=== PATIENT | male | born 1940 | race Caucasian/White ===

== ENCOUNTER 2017-12-02 17:38 | Emergency (ER) | payer OTHER ==
[~2017-12-02] VITALS: Ht 170.2 cm; Wt 95.0 kg
[~2017-12-02 17:38] MED LIST: ADVAIR HFA120 INHALA IH; ASPIRIN325 MG PO; CLEOCIN150 MG PO; DAILY VALUE1 EACH PO; HYDROCHLOROT TAB 12. PO; ICAPS MULTIV1 TABLET PO; LISINOPRIL40 MG PO; METOPROLOL SUCC25 MG PO; MUCINEX600 MG PO; PROAIR HFA8.5 GM IH; SIMVASTATIN80 MG PO; VITAMIN D2000 INTUN PO; ZETIA10 MG PO
[2017-12-02 18:26] LABS: HEMATOCRIT 44.2 % (38.0-50.0); HEMOGLOBIN 15.3 G/DL (12.5-16.6); MCH 31.1 PG (29.0-34.0); MCHC 34.6 G/DL (30.0-36.0); MCV 89.8 FL (86-99); PLATELET COUNT 203 K/uL (156-360); RBC DIS.WIDTH-CV 13.5 % (11.8-14.6); RBC DIS.WIDTH-SD 44.6 % (39-53); RED BLOOD COUNT 4.92 M/uL (4.00-5.50); WHITE BLOOD COUNT 7.7 K/uL (4.1-10.2)
[2017-12-02 18:39] LABS: CHLORIDE 102 mEq/L (99-109); POTASSIUM 4.8 mEq/L (3.7-5.4); SODIUM 138 mEq/L (136-147)
[2017-12-02 18:41] LABS: GLUCOSE 118 mg/dL (70-99)
[2017-12-02 18:45] LABS: CREATININE 1.5 mg/dL (0.6-1.3); GFR ESTIMATE (CALCULATED) 48 mL/min/ (58.99-99999)
[2017-12-02 18:46] LABS: UREA NITROGEN (BUN) 29 mg/dL (9-23)
[2017-12-02 18:49] LABS: TROP-I INTERPRETATION NEGATIVE; TROPONIN-I 0.01 ng/mL (0.0-0.30)
[2017-12-02] MEDS ORDERED: PREDNISONE20 MG PO (21:13)
[2017-12-02] MEDS ORDERED: FLONASE16 G1 BOTH NARES (21:13)
[2017-12-02] MEDS ORDERED: VENTOLIN HFA18 GM IH (21:13)
[2017-12-02 21:29] VITALS: BP 174/77
== END 2017-12-02 21:31 | disposition hospice, inpatient (51) ==
LOC: EME 17:38
PROVIDERS: Nurse Practitioner Family
DX: R06.02 Shortness of breath (principal); R06.2 Wheezing; T17.590A Other foreign object in bronchus causing asphyxiation, initial encounter; I25.10 Atherosclerotic heart disease of native coronary artery without angina pectoris; I10 Essential (primary) hypertension; E78.5 Hyperlipidemia, unspecified; Z95.5 Presence of coronary angioplasty implant and graft; Z79.51 Long term (current) use of inhaled steroids; Z79.82 Long term (current) use of aspirin; Z88.5 Allergy status to narcotic agent
CPT/HCPCS: 71275; 80048; 84484; 85027; 93005; 94640; 99281; 99284; J7120